=== PATIENT | male | born 1990 | race African-American/Black ===

== ENCOUNTER 2019-08-24 10:42 | Emergency (ER) | payer MEDICAID ==
[~2019-08-24] VITALS: Ht 172.7 cm; Wt 74.4 kg
[2019-08-24 10:56] VITALS: Ht 172.7 cm; Wt 74.4 kg
[2019-08-24 11:47] VITALS: BP 120/58
== END 2019-08-24 11:47 | disposition home or self-care (01) ==
LOC: ED 10:42
DX: R11.10 Vomiting, unspecified (principal); R05 Cough